=== PATIENT | female | born 1960 | race Caucasian/White ===

== ENCOUNTER → 2018-10-03 13:26 | Outpatient (POV) | payer OTHER, SELFPAY | PROVIDERS: Visit Provider Dermatology | DX: Z00.00 Encounter for general adult medical examination without abnormal findings (principal) ==

== ENCOUNTER 2021-06-20 20:15 | Emergency (ER) | payer OTHER, SELFPAY ==
[2021-06-20 20:16] VITALS: BP 166/95; PULSE 88; RESP 18; TEMP 36.7; O2SAT 98; BMI 31.6
--- NOTE | 2021-06-20 20:59 | ED_ITS ---
[facility] [place] Disposition Clinical Impression: Exposure to COVID-19 virus Disposition: Home, Self-Care Condition on Discharge: Good Instructions: Preventing the Spread of Coronavirus Discharge Instructions Additional Instructions: You have been tested for COVID19. Please isolate as if you are positive until test results received. Referrals: Kiana Toney [Primary Care Provider] - Time of Disposition: 21:01 Medical Decision Making - Carlos Inquiry Pt receiving controlled substance: No Orders (Tests/Meds): ORDERS Category Date Time Status Covid-19 Nasal PCR ([facility]) Routine Lab 06/20/21 20:45 Received [facility] [place] HPI - General Stated complaint: COVID TEST Time Seen by Provider: 06/20/21 20:59 - History of Present Illness Provider Complaint: [id number] tested positive for COVID19 earlier today. Her earlier this week and they have been at the . She is asymptomatic. She has been vaccinated. Onset (ago): day(s) (1) Relieving factors: none Exacerbating factors: none Associated symptoms: denies other symptoms Treatments prior to arrival: none - Related Data Home Medications Medication Instructions Recorded Confirmed Meloxicam 7.5 mg PO DAILY 05/29/18 05/29/18 estradioL [Estradiol] 0.5 mg PO DAILY 05/29/18 05/29/18 Allergies Allergy/AdvReac Type Severity Reaction Status Date / Time No Known Allergies Allergy Verified 05/29/18 12:27 [facility] History - Hepatitis A Screen Attestation statement:: This patient has been screened for Hepatitis A risk factors. I have reviewed the patient's past medical history: Yes Medical History: Denies:: Diabetes Mellitus Type 1, Diabetes Mellitus Type 2, Lung Disease, Seizures Other Surgeries: Yes: Hysterectomy-Total, Other (breast reduction) ROS Obtained: Yes All systems reviewed & no additional complaints Physical Exam - General General appearance: alert, in no apparent distress - Head Head exam: normocephalic - Eye Eye exam: Present: PERRL - ENT ENT exam: Present: normal oropharynx - Neck Neck exam: Present: normal inspection - Chest Chest inspection: Present: normal inspection, symmetric chest wall rise - Respiratory Respiratory exam: Present: normal lung sounds bilaterally - Cardiovascular Cardiovascular exam: Present: regular rate, normal rhythm - Neurological Exam Neurological exam: Present: alert, oriented X3 - Psychiatric Psychiatric exam: Present: normal affect, normal mood - Skin Skin exam: Present: warm, dry, intact
[2021-06-20 21:10] VITALS: BP 166/95; PULSE 88; RESP 18; TEMP 36.7; O2SAT 98
--- NOTE | 2021-06-21 11:11 | PC.NURSE ---
PT NOTIFIED OF POSITIVE COVID RESULTS
== END 2021-06-20 21:11 | disposition home or self-care (01) ==
PROVIDERS: Emergency Provider Physician Assistant; PCP Physician Assistant
DX: U07.1 COVID-19 (principal)
CPT/HCPCS: 99202; G0463; U0003

== ENCOUNTER → 2023-01-11 13:23 | Outpatient (POV) | payer OTHER, SELFPAY | PROVIDERS: Visit Provider Dermatology | DX: Z00.00 Encounter for general adult medical examination without abnormal findings (principal) ==